=== PATIENT | male | born 1950 | race Hispanic/Latino ===

== ENCOUNTER 2017-03-12 12:40 | Observation (INO) | payer MEDICARE, OTHER ==
[2017-03-12 12:45] VITALS: BMI 29.0
--- NOTE | 2017-03-12 13:06 | ED PDOC ---
Arrival/HPI - General Chief Complaint: Dizziness/Lightheaded Time Seen by Provider: 03/12/17 12:46 Historian: Patient, Industrial Hygiene Manager (Scribe) - History of Present Illness Narrative History of Present Illness (Text): 03/12/17 13:03 A 66 year old male was sent into the emergency department by PMD for worsening dizziness since yesterday. History obtained through scribe who translated for patient. Patient describes the dizziness as a room spinning sensation. He denies any relieving or exacerbating factors. Patient denies any fever, chills, nausea, vomiting, abdominal pain, chest pain, shortness of breath, cough or any other complaints. PMD: Dr. Zia Bustamante Time/Duration: Other (Yesterday) Symptom Course: Worsening Quality: Other Context: Home Past Medical History - Provider Review Nursing Documentation Reviewed: Yes - Cardiac Hx Cardiac Disorders: Yes Hx MT: Yes Hx Hypertension: Yes - Pulmonary Hx Respiratory Disorders: Yes Hx Asthma: Yes - Neurological Hx Neurological Disorder: Yes HX Cerebrovascular Accident: Yes - HEENT Hx HEENT Disorder: Yes Hx Glaucoma: Yes - Gastrointestinal Hx Gastrointestinal Disorders: Yes Hx Bowel Surgery: Yes - Psychiatric Hx Substance Use: No Family/Social History - Physician Review Nursing Documentation Reviewed: Yes Family/Social History: No Known Family HX Smoking Status: Never Smoked Hx Alcohol Use: No Hx Substance Use: No Allergies/Home Meds Allergies/Adverse Reactions: Allergies aspirin Allergy (Verified 03/12/17 12:45) RASH Home Medications: Home Meds Medication Instructions Recorded Confirmed Albuterol HFA [Ventolin HFA 90 2 puff IH PRN PRN 03/12/17 03/12/17 mcg/actuation (8 g)] Lisinopril [Zestril] 20 mg PO DAILY 03/12/17 03/12/17 Review of Systems - Physician Review All systems were reviewed & negative as marked: Yes - Review of Systems Constitutional: absent: Fevers, Night Sweats Respiratory: absent: SOB, Cough Cardiovascular: absent: Chest Pain Gastrointestinal: absent: Abdominal Pain, Nausea, Vomiting Neurological: Dizziness Physical Exam Vital Signs Reviewed: Yes Vital Signs Temp Pulse Resp BP Pulse Ox 03/12/17 18:44 80 128/80 03/12/17 17:08 86 18 127/77 100 03/12/17 15:54 78 14 137/73 99 03/12/17 12:56 98.7 F 94 H 17 164/92 H 99 03/12/17 12:41 98.6 F 87 18 154/99 H 98 Temperature: Afebrile Blood Pressure: Hypertensive Pulse: Regular Respiratory Rate: Normal Appearance: Positive for: Well-Appearing, Non-Toxic, Comfortable Pain Distress: None Mental Status: Positive for: Alert and Oriented X 3 - Systems Exam Head: Present: Atraumatic, Normocephalic Pupils: Present: PERRL Extroacular Muscles: Present: EOMI Conjunctiva: Present: Normal Mouth: Present: Moist Mucous Membranes Neck: Present: Normal Range of Motion Respiratory/Chest: Present: Clear to Auscultation, Good Air Exchange. No: Respiratory Distress, Accessory Muscle Use Cardiovascular: Present: Regular Rate and Rhythm, Normal S1, S2. No: Murmurs Abdomen: Present: Normal Bowel Sounds. No: Tenderness, Distention, Peritoneal Signs Back: Present: Normal Inspection Upper Extremity: Present: Normal Inspection. No: Cyanosis, Edema Lower Extremity: Present: Normal Inspection. No: Edema Neurological: Present: GCS=15, CN II-XII Intact, Speech Normal, Motor Func Grossly Intact, Normal Sensory Function, Normal Cerebellar Funct Skin: Present: Warm, Dry, Normal Color. No: Rashes Psychiatric: Present: Alert, Oriented x 3, Normal Insight, Normal Concentration Medical Decision Making ED Course and Treatment: 03/12/17 13:03 Impression: A 66 year old male with worsening dizziness. Plan: -- Head CT -- Chest xray -- EKG -- Labs -- Urinalysis -- Meclizine -- Reassess and disposition Progress Notes: EKG shows NSR at 87 BPM with nonspecific T-wave changes. Interpreted by me. Report Date : 03/12/2017 13:27:10 Procedure: Chest xray Dictator : Juan Carlos Carmona MD IMPRESSION: No active disease. Report Date : 03/12/2017 13:34:54 PROCEDURE: CT HEAD WITHOUT CONTRAST. Dictator : Juan Carlos Carmona MD IMPRESSION: Normal CT of the Head. 03/15/17 pt with persistent dizziness, cp. dr bryan bedside. recommends stress. pt with allergy to asa. asa held - Lab Interpretations Lab Results: 03/12/17 12:50 03/12/17 12:50 Lab Results 03/12/17 12:52: POC Glucose (mg/dL) 164 H 03/12/17 12:50: Sodium 138, Potassium 3.8, Chloride 98, Carbon Dioxide 28, Anion Gap 16, BUN 13, Creatinine 0.6, Est GFR ( Amer) > 60, Est GFR (Non- Af Amer) > 60, Random Glucose 143 H, Calcium 9.3, Magnesium 2.0, Total Bilirubin 0.6, AST 41, ALT 49, Alkaline Phosphatase 103, Lactate Dehydrogenase 502, Total Creatine Kinase 129, Troponin I < 0.01, Total Protein 8.4 H, Albumin 4.7, Globulin 3.7, Albumin/Globulin Ratio 1.3 03/12/17 12:50: PT 11.3, INR 1.05, APTT 25.8 03/12/17 12:50: WBC 8.1, RBC 4.54, Hgb 14.4, Hct 40.8 L, MCV 89.9, MCH 31.7, MCHC 35.3, RDW 12.6, Plt Count 232, MPV 10.0, Gran % 45.4 L, Lymph % (Auto) 33.8 , Foster % (Auto) 6.5 H, Eos % (Auto) 12.7 H, Baso % (Auto) 1.6, Gran # 3.70, Lymph # 2.8, Foster # 0.5, Eos # 1.0 H, Baso # 0.13 I have reviewed the lab results: Yes - RAD Interpretation Radiology Orders: 03/12/17 12:57 CHEST PORTABLE [RAD] Stat 03/12/17 12:58 HEAD W/O CONTRAST [CT] Stat - Medication Orders Current Medication Orders: Discontinued Medications Aminophylline (Aminophylline 25 Mg/Ml Inj) Confirm Administered Dose 250 mg .ROUTE .STK-MED ONE Stop: 03/13/17 12:35 Last Admin: 03/13/17 13:07 Dose: 100 mg Comments: given during stress test as per order by Dr. Bryan Atorvastatin Calcium (Lipitor) 20 mg PO DIN CINTHIA Last Admin: 03/13/17 16:55 Dose: 20 mg Enoxaparin Sodium (Lovenox) 40 mg SC STAT STA PRN Reason: Protocol Stop: 03/12/17 17:29 Last Admin: 03/12/17 18:44 Dose: 40 mg Enoxaparin Sodium (Lovenox) 40 mg SC DAILY [facility] PRN Reason: Protocol Last Admin: 03/14/17 09:49 Dose: 40 mg Fentanyl (Duragesic) 1 patch TD Q72H [facility] Last Admin: 03/12/17 23:20 Dose: 1 patch Latanoprost (Xalatan Opht) 0 ml OU HS [facility] Last Admin: 03/13/17 22:07 Dose: 2.5 ml Levalbuterol HCl (Xopenex) 0.63 mg IH [id number] PRN PRN Reason: Shortness of Breath Lisinopril (Zestril) 20 mg PO DAILY [facility] Last Admin: 03/14/17 09:49 Dose: 20 mg Meclizine HCl (Antivert) 50 mg PO STAT STA Stop: 03/12/17 12:59 Last Admin: 03/12/17 13:08 Dose: 50 mg Metoprolol Tartrate (Lopressor) 25 mg PO BID [facility] Last Admin: 03/14/17 09:49 Dose: 25 mg Oxycodone HCl (Oxycodone Immediate Release Tab) 10 mg PO BID PRN PRN Reason: Pain, moderate (4-7) Regadenoson (Lexiscan) Confirm Administered Dose 0.4 mg IVP .STK-MED ONE Stop: 03/13/17 12:35 Last Admin: 03/13/17 13:05 Dose: 0.4 mg Comments: given during stress test by Dr. Bryan NIHSS Scale (Raymond) Time Performed: 21:13 - How Severe is the Stoke Baseline Level of Consciousness: 0=Alert LOC to Questions: 0=Both comments correct LOC to commands: 0=Obeys both correctly Best Gaze: 0=Normal Visual: 0=No visual loss Facial: 0=Normal Motor Arm - Left: 0=No drift Motor Arm - Right: 0=No drift Motor Leg - Left: 0=No drift Motor Leg - Right: 0=No drift Limb Ataxia: 0=Absent Sensory: 0=Normal Best Language: 0=No aphasia Dysarthia: 0=Normal articulation Extinction & Inattention (Neglect): 0=Normal, no object Score: 0 Risk Level: No Stroke Risk rTPA Inclusion/Exclusion - Refusal of Treatment Patient Refused Treatment: No - Inclusion Criteria for Altepase Patient is 18 years or Older: Yes The Clinical Diagnosis of Ischemic Stroke That is Causing a Potentially Disabling Neurological Deficit: No Time of Onset is Well Established to be Less Than 270 Minute Before Treatment Would Begin: No Risk/Benefit Discussed With Patient/Family Member Present: No - Scribe Statement The provider has reviewed the documentation as recorded by the Scribe Martina Tyler Provider Scribe Attestation: All medical record entries made by the Scribe were at my direction and personally dictated by me. I have reviewed the chart and agree that the record accurately reflects my personal performance of the history, physical exam, medical decision making, and the department course for this patient. I have also personally directed, reviewed, and agree with the discharge instructions and disposition. Disposition/Present on Arrival - Present on Arrival Any Indicators Present on Arrival: No History of DVT/PE: No History of Uncontrolled Diabetes: No Urinary Catheter: No History of Decub. Ulcer: No History Surgical Site Infection Following: None - Disposition Have Diagnosis and Disposition been Completed?: Yes Diagnosis: Chest pain, Dizziness Disposition: HOSPITALIZED Disposition Time: 04:00 Condition: GOOD
[2017-03-12 13:08] LABS: BASO # 0.13 K/mm3 (0.0-2.0); BASO % 1.6 % (0.0-3.0); EOS % 12.7 % (1.5-5.0); GRAN % 45.4 % (50.0-68.0); HEMOGLOBIN 14.4 g/dL (14.0-18.0); LYMPH # 2.8 (1.2-3.4); LYMPH % 33.8 % (22.0-35.0); MEAN CELL VOLUME 89.9 fl (80.0-105.0); MEAN CORPUSCULAR HEMOGLOBIN 31.7 pg (25.0-35.0); MEAN CORPUSCULAR HGB CONC 35.3 g/dl (31.0-37.0); MONO # 0.5 (0.1-0.6); MONO % 6.5 % (1.0-6.0); PLATELET COUNT 232 10^3/uL (120.0-450.0); RBC 4.54 10^6/uL (3.5-6.1); RED CELL DISTRIBUTION WIDTH 12.6 % (11.5-14.5); WHITE BLOOD COUNT 8.1 10^3/ul (4.5-11.0)
[2017-03-12 13:17] LABS: INR 1.05 (0.93-1.08); PARTIAL THROMBOPLASTIN TIME 25.8 Seconds (23.7-30.8); PROTHROMBIN TIME 11.3 Seconds (9.9-11.8)
[2017-03-12 13:18] LABS: ALB/GLOB RATIO 1.3 (1.1-1.8); ALBUMIN 4.7 g/dL (3.0-4.8); ALT/SGPT 49 U/L (7-56); AST/SGOT 41 U/L (15-59); BLOOD UREA NITROGEN 13 mg/dL (7-21); CALCIUM 9.3 mg/dL (8.4-10.5); GFR AFRICAN-AMERICAN > 60; GFR NON-AFRICAN AMERICAN > 60
--- NOTE | 2017-03-12 13:28 | RAD ---
HISTORY: dizziness COMPARISON: 11/09/2014 FINDINGS: LUNGS: No active pulmonary disease. PLEURA: No significant pleural effusion identified, no pneumothorax apparent. CARDIOVASCULAR: Normal. OSSEOUS STRUCTURES: No significant abnormalities. VISUALIZED UPPER ABDOMEN: Normal. OTHER FINDINGS: None. IMPRESSION: No active disease.
[2017-03-12 13:29] LABS: TROPONIN I < 0.01 ng/mL
--- NOTE | 2017-03-12 13:36 | CT ---
PROCEDURE: CT HEAD WITHOUT CONTRAST. HISTORY: dizziness COMPARISON: None available. TECHNIQUE: Axial computed tomography images were obtained through the head/brain without intravenous contrast. Radiation dose: Total exam DLP = 746 mGy-cm. This CT exam was performed using one or more of the following dose reduction techniques: Automated exposure control, adjustment of the mA and/or kV according to patient size, and/or use of iterative reconstruction technique. FINDINGS: HEMORRHAGE: No intracranial hemorrhage. BRAIN: No mass effect or edema. No atrophy or chronic microvascular ischemic changes. VENTRICLES: Unremarkable. No hydrocephalus. CALVARIUM: Unremarkable. PARANASAL SINUSES: Unremarkable as visualized. No significant inflammatory changes. MASTOID AIR CELLS: Unremarkable as visualized. No inflammatory changes. OTHER FINDINGS: None. IMPRESSION: Normal CT of the Head.
[2017-03-12] MEDS ORDERED: Sodium Chloride 3% 500 ML IV STA (14:42)
[2017-03-12] MEDS ORDERED: Enoxaparin 40 mg Syringe SC STA (17:28)
[2017-03-12] MEDS ORDERED: Levalbuterol 0.63 MG/3 ML Inhal Soln UD IH PRN (17:29)
[2017-03-12 17:38] LABS: PH,URINE 6.5 (4.7-8.0); URINE BILIRUBIN NEGATIVE (NEGATIVE); URINE BLOOD TRACE-LYSED (NEGATIVE); URINE GLUCOSE (UA) NEGATIVE (NEGATIVE); URINE LEUKOCYTE ESTERASE NEGATIVE Leu/uL (NEGATIVE); URINE NITRATE NEGATIVE (NEGATIVE); URINE PROTEIN NEGATIVE mg/dL (<30 mg/dL); URINE UROBILINOGEN 0.2 E.U./dL (<1 E.U./dL)
[2017-03-12 17:40] LABS: URINE APPEARANCE CLEAR (CLEAR); URINE COLOR STRAW (YELLOW)
[2017-03-12 17:54] LABS: URINE RBC 0 - 2 /hpf (0-2); URINE WBC NEGATIVE /hpf (0-6)
[2017-03-12 17:55] LABS: URINE BACTERIA FEW (NEG)
[2017-03-12] MEDS ORDERED: oxyCODONE 10 mg Immediate Release Tab PO PRN (19:55)
[2017-03-12 20:56] LABS: TROPONIN I < 0.01 ng/mL
--- NOTE | 2017-03-12 22:58 | CP.PCM.PN ---
Subjective - Date & Time of Evaluation Date of Evaluation: 03/12/17 Time of Evaluation: 22:57 - Subjective Subjective: DRAFT eye drops xalatan 1 gtt. OU HS. Objective - Vital Signs/Intake and Output Vital Signs (last 24 hours): Temp Pulse Resp BP Pulse Ox 98.7 F 80 18 128/80 100 03/12/17 12:56 03/12/17 18:44 03/12/17 17:08 03/12/17 18:44 03/12/17 17:08 - Medications Medications: Current Medications Enoxaparin Sodium (Lovenox) 40 mg SC DAILY [facility] PRN Reason: Protocol Fentanyl (Duragesic) 1 patch TD Q72H CINTHIA Latanoprost (Xalatan Opht) 0 ml OU HS [facility] Levalbuterol HCl (Xopenex) 0.63 mg IH [id number] PRN PRN Reason: Shortness of Breath Lisinopril (Zestril) 20 mg PO DAILY [facility] Metoprolol Tartrate (Lopressor) 25 mg PO BID [facility] Last Admin: 03/12/17 18:44 Dose: 25 mg Oxycodone HCl (Oxycodone Immediate Release Tab) 10 mg PO BID PRN PRN Reason: Pain, moderate (4-7) - Labs Labs: PT 11.3 Seconds (9.9-11.8) 03/12/17 12:50 INR 1.05 (0.93-1.08) 03/12/17 12:50 APTT 25.8 Seconds (23.7-30.8) 03/12/17 12:50
[2017-03-12] MEDS: Latanoprost 2.5 ml Opht Soln OU SCH (23:18)
--- NOTE | 2017-03-13 01:26 | CON ---
REASON FOR CONSULTATION: Chest pain, cardiac evaluation. BRIEF CLINICAL HISTORY: This is a 66-year-old [id number] obese with past medical history significant for hypertension admitted with dizziness, feels little dizzy and also complaining of dyspnea of exertion and chest pain on exertion, being followed by Dr. Bustamante and Dr. Barnes, did not see for a while Dr. Barnes, had a stress test many years ago, recently having some dyspnea on exertion and chest pain on exertion. The patient says he gets rash, but he is not sure, but it is labelled as allergic to aspirin, and the language barrier is also in between. The patient complained of dizziness as well as chest pain and dyspnea on exertion. 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 SOCIAL HISTORY: Denies smoking. Denies any history of alcohol abuse. CURRENT MEDICATIONS: Lisinopril. ALLERGIES: ALLERGIC TO ASPIRIN. FAMILY HISTORY: Noncontributory. REVIEW OF SYSTEMS: As per HPI. PHYSICAL EXAMINATION VITAL SIGNS: height of the patient is 5 feet and 6 inches, weight of the patient is 180 pounds. Body mass index 29.1 kg/m2. Temperature afebrile, heart rate 94 and blood pressure 164/92. HEENT: PERRLA. Extraocular muscles are intact. NECK: Supple. No carotid bruits or thyromegaly. CHEST: Clear to auscultation. HEART: S1 and S2. Regular. ABDOMEN: Soft. EXTREMITIES: Clubbing and cyanosis negative. LABORATORY DATA: EKG shows normal sinus, T inversion in V2, V3 and V4. IMPRESSION: This is a 66-year-old male with a past medical history significant for asbestos inhalation and hypertension admitted with dyspnea on exertion and chest pain on exertion and dizziness also. First set of the troponin is negative, but given the multiple risk factors for coronary artery disease, suggest echo, stress test, lipid profile, TSH and hemoglobin A1c. The patient also gives a history of surgery of abdomen as exploratory laparotomy after having bright red blood per rectum and possibly partial colectomy was done by Dr. Quintana 5 years ago. It is possible that causes allergy to aspirin that the patient thinks is an allergy. We will try to get in touch with the family members to sort out the allergy issue with aspirin. In the interim, give him one dose of Lovenox to prevent DVT prophylaxis, start Lovenox and he will get lisinopril continue and get the lipid profile, TSH, hemoglobin A1c. Keep n.p.o. after 12 midnight for a stress test in the morning. Thank you Dr. Bustamante for providing us an opportunity in taking care of this patient. Radha Bryan MD cc: Dr. Bustamante.
[2017-03-13 06:17] LABS: HEMOGLOBIN 13.4 g/dL (14.0-18.0); MEAN CELL VOLUME 89.6 fl (80.0-105.0); MEAN CORPUSCULAR HEMOGLOBIN 30.9 pg (25.0-35.0); MEAN CORPUSCULAR HGB CONC 34.5 g/dl (31.0-37.0); MEAN PLATELET VOLUME 9.7 fl (7.0-11.0); PLATELET COUNT 218 10^3/uL (120.0-450.0); RBC 4.33 10^6/uL (3.5-6.1); RED CELL DISTRIBUTION WIDTH 12.6 % (11.5-14.5); WHITE BLOOD COUNT 7.5 10^3/ul (4.5-11.0)
[2017-03-13 06:55] LABS: BASOPHIL 1 % (0.0-1.0); EOSINOPHIL 10 % (0.0-3.0); LYMPHOCYTE 45 % (22.0-35.0); MONOCYTE 5 % (1.0-6.0); NEUTROPHIL 39 % (50.0-70.0); PLATELET ESTIMATE NORMAL (NORMAL)
[2017-03-13 08:07] LABS: BLOOD UREA NITROGEN 11 mg/dL (7-21); GFR AFRICAN-AMERICAN > 60
[2017-03-13 08:08] LABS: ALB/GLOB RATIO 1.2 (1.1-1.8); ALBUMIN 3.9 g/dL (3.0-4.8); ALT/SGPT 42 U/L (7-56); AST/SGOT 32 U/L (15-59); CALCIUM 8.8 mg/dL (8.4-10.5); GFR NON-AFRICAN AMERICAN > 60; HDL CHOLESTEROL 36 mg/dL (29-60); MAGNESIUM 2.2 mg/dL (1.7-2.2)
[2017-03-13 08:18] LABS: LDL CHOLESTEROL 134 mg/dL (0-129)
--- NOTE | 2017-03-13 11:26 | CP.PCM.HP ---
History of Present Illness - History of Present Illness History of Present Illness: 66 yo male h/o CAD/ND (2009) presents to ED yesterday with left sided chest discomfort, diaphoresis, SOB. Troponin negative. Seen by nabila, for stress test today. No cp at present, no SOB Present on Admission - Present on Admission Any Indicators Present on Admission: No Review of Systems - Constitutional Constitutional: Excessive Sweating - Cardiovascular Cardiovascular: Chest Pain, Dyspnea - Neurological Neurological: Dizziness Past Patient History - Past Social History Smoking Status: Never Smoked - CARDIAC Hx Cardiac Disorders: Yes Hx Hypertension: Yes - PULMONARY Hx Respiratory Disorders: Yes Hx Asthma: Yes - NEUROLOGICAL Hx Neurological Disorder: Yes Hx Dizziness: Yes - HEENT Hx HEENT Problems: Yes Hx Glaucoma: Yes - RENAL Hx Chronic Kidney Disease: Yes Hx Kidney Stones: Yes - ENDOCRINE/METABOLIC Hx Endocrine Disorders: No - HEMATOLOGICAL/ONCOLOGICAL Hx Blood Disorders: No - INTEGUMENTARY Hx Dermatological Problems: No - MUSCULOSKELETAL/RHEUMATOLOGICAL Hx Musculoskeletal Disorders: Yes Hx Arthritis: Yes Hx Falls: No - GASTROINTESTINAL Hx Gastrointestinal Disorders: No - GENITOURINARY/GYNECOLOGICAL Hx Genitourinary Disorders: No - PSYCHIATRIC Hx Psychophysiologic Disorder: No Hx Substance Use: No - SURGICAL HISTORY Hx Surgeries: Yes Meds Allergies/Adverse Reactions: Allergies Allergy/AdvReac Type Severity Reaction Status Date / Time aspirin Allergy RASH Verified 03/12/17 12:45 Physical Exam - Constitutional Appears: No Acute Distress - Head Exam Head Exam: ATRAUMATIC, NORMOCEPHALIC - Eye Exam Eye Exam: EOMI, PERRL - ENT Exam ENT Exam: Normal Exam - Neck Exam Neck exam: Positive for: Normal Inspection - Respiratory Exam Respiratory Exam: Clear to Auscultation Bilateral, NORMAL BREATHING PATTERN - Cardiovascular Exam Cardiovascular Exam: REGULAR RHYTHM - GI/Abdominal Exam GI & Abdominal Exam: Normal Bowel Sounds, Soft - Extremities Exam Extremities exam: Positive for: normal inspection - Neurological Exam Neurological exam: Alert, Oriented x3 - Skin Skin Exam: Dry, Warm Results - Vital Signs Recent Vital Signs: Last Vital Signs Temp 98.1 F 03/13/17 06:00 Pulse 58 L 03/13/17 10:00 Resp 19 03/13/17 06:00 BP 105/64 03/13/17 06:00 Pulse Ox 99 03/13/17 06:00 - Labs Result Diagrams: 03/13/17 05:45 03/13/17 07:30 Labs: Laboratory Results - last 24 hr 03/12/17 03/12/17 03/13/17 17:13 20:28 05:45 WBC 7.5 RBC 4.33 Hgb 13.4 L Hct 38.8 L MCV 89.6 MCH 30.9 MCHC 34.5 RDW 12.6 Plt Count 218 MPV 9.7 Neutrophils % (Manual) 39 L Lymphocytes % (Manual) 45 H Monocytes % (Manual) 5 Eosinophils % (Manual) 10 H Basophils % (Manual) 1 Platelet Evaluation Normal Sodium Potassium Chloride Carbon Dioxide Anion Gap BUN Creatinine Est GFR ( Amer) Est GFR (Non-Af Amer) Random Glucose Calcium Phosphorus Magnesium Total Bilirubin AST ALT Alkaline Phosphatase Lactate Dehydrogenase 443 Total Creatine Kinase 128 Troponin I < 0.01 Total Protein Albumin Globulin Albumin/Globulin Ratio Triglycerides Cholesterol LDL Cholesterol Direct HDL Cholesterol TSH 3rd Generation Urine Color Straw Urine Appearance Clear Urine pH 6.5 Ur Specific Plessis 1.015 Urine Protein Negative Urine Glucose (UA) Negative Urine Ketones Negative Urine Blood Trace-lysed H Urine Nitrate Negative Urine Bilirubin Negative Urine Urobilinogen 0.2 Ur Leukocyte Esterase Negative Urine RBC 0 - 2 Urine WBC Negative Ur Epithelial Cells None Urine Bacteria Few 03/13/17 03/13/17 05:45 07:30 WBC RBC Hgb Hct MCV MCH MCHC RDW Plt Count MPV Neutrophils % (Manual) Lymphocytes % (Manual) Monocytes % (Manual) Eosinophils % (Manual) Basophils % (Manual) Platelet Evaluation Sodium 137 Potassium 4.3 Chloride 99 Carbon Dioxide 29 Anion Gap 13 BUN 11 Creatinine 0.6 Est GFR ( Amer) > 60 Est GFR (Non-Af Amer) > 60 Random Glucose 85 Calcium 8.8 Phosphorus 4.2 Magnesium 2.2 Total Bilirubin 0.8 AST 32 ALT 42 Alkaline Phosphatase 77 Lactate Dehydrogenase Total Creatine Kinase Troponin I Total Protein 7.2 Albumin 3.9 Globulin 3.3 Albumin/Globulin Ratio 1.2 Triglycerides 250 H Cholesterol 205 H LDL Cholesterol Direct 134 H HDL Cholesterol 36 TSH 3rd Generation 1.94 Urine Color Urine Appearance Urine pH Ur Specific Plessis Urine Protein Urine Glucose (UA) Urine Ketones Urine Blood Urine Nitrate Urine Bilirubin Urine Urobilinogen Ur Leukocyte Esterase Urine RBC Urine WBC Ur Epithelial Cells Urine Bacteria Assessment & Plan (1) Coronary artery disease Status: Chronic (2) Chest pain Status: Acute (3) Hypertension Status: Acute - Date & Time Date: 03/13/17 Time: 11:15
[2017-03-13] MEDS ORDERED: Aminophylline 25 mg/ml Inj ONE (12:34)
--- NOTE | 2017-03-13 13:16 | PN ---
DATE: 03/13/2017 REASON FOR CONSULTATION: Followup chest pain, cardiac evaluation. SUBJECTIVE: The patient denies any chest pain now. Denies any shortness of breath. Denies any palpitation. Feels better. Dizziness also improved. OBJECTIVE: GENERAL: Lying flat on the bed, n.p.o., waiting to go for stress test. VITAL SIGNS: Temperature afebrile, heart rate 60, and blood pressure 105/64. HEENT: PERRLA. Extraocular muscle intact. NECK: Supple. No carotid bruit. No thyromegaly. CHEST: Clear to auscultation. HEART: S1 and S2, regular. ABDOMEN: Soft. EXTREMITIES: Clubbing and cyanosis negative. LABORATORY DATA: Blood workup as follows; WBC 7.5, hemoglobin 13.4, hematocrit 38.8 and platelet count 218. Chemistry shows sodium 130, potassium 4.3, chloride 99, carbon dioxide 29, anion gap of 13, BUN 11, and creatinine 0.5. Total protein 7.2, albumin 3.9, and albumin-globulin ratio 1.2. Triglycerides 250, cholesterol 205, LDL 134, HDL 36. TSH 1.94. Troponin 0.01 x2. IMPRESSION: A 66-year-old male with past medical history significant for hypertension, hyperlipidemia, history of asbestosis, chronic obstructive pulmonary disease, admitted with dizziness, chest pain, so far troponin is negative. History of possible colectomy for GI bleed, hyperlipidemia. RECOMMENDATIONS: We will do stress test echo today, continue DVT prophylaxis, so far no evidence of acute myocardial infarction. We will resume lisinopril, continue meclizine, continue metoprolol 25 mg twice a day, and we will start atorvastatin for hyperlipidemia 20 mg daily. Further recommendation follow with you. Thank you Dr. Bustamante for providing us an opportunity in taking care of this patient. Radha Bryan MD
[2017-03-13] MEDS: Enoxaparin 40 mg Syringe SC SCH (16:52)
[2017-03-13] MEDS: Latanoprost 2.5 ml Opht Soln OU SCH (22:07)
--- NOTE | 2017-03-13 22:59 | CARD ---
APPROVED REPORT Protocol: LEXISCAN Test Type: Lexiscan Sestamibi Stress Test Attending Physician: Dr. Radha Bryan Referring Physician: Dr. Zia Bustamante Test Indications: Chest Pain Height:5 ft 6 in Weight:171lbs Medications: Lipitor, Lovenox, Duragesic, Lopressor Medical History: 66 y/o male with a history of htn, lung disease Target HR: 155 bpm Resting ECG: normal Resting Heart Rate: 65 bpm Resting Blood Pressure: 150/80mmHg Submaximum (85%): 132 bpm PROCEDURE Pharmacologic stress testing was performed using 0.4mg per 5ml of regadenoson given intravenously over 7-10 seconds. Reversal agent aminophyline 100 mg, given intravenously for Other. POST EXERCISE Reason for Termination: Protocol completed Target HR: No Max HR: 65 bpm 56% of Maximum Predicted HR: 155 bpm Exercise duration: 00:24 min:sec, 0 Stage Exercise capacity: 1.0METs Max Blood Pressure: 150/80mmHg Blood Pressure response to exercise: normal resting BP - appropriate response Heart Rate response to exercise: appropriate Chest Pain: No, none Angina index: 0 Arrhythmia: No, none ST Change: No, none Deviation: 0 mm TEST SUMMARY [id number]. [id number]/.[id number]. [id number]. INTERPRETATION Stress EKG Conclusion: Negative IV lexiscan for ischemia and for chest pain, Nuclear scan to follow. Signed by Radha Byran Electronically Approved: 03/13/2017 13:59:33 EXAM: Myocardial Perfusion REST/STRESS Stress Test Type: Pharmacologic Imaging Protocol Rest Spect myocardial perfusion imaging was performed in supine position 45 minutes following the injection of 10.8 mCi of Tc-99 Myoview. At peak stress, the patient was injected intravenously with 30.9mCi of Tc-99 tetrofosmin after an infusion time of 0 minutes and 10 seconds. Gated Stress Spect was performed 65 minutes after intravenous Tc-99 Myoview injection. The images were gated to evaluate regional wall motion and calculate ventricular ejection fraction.Images were reconstructed using backfilter projection method in short horizontal and verticle long axis. Spect slices were generated. LV Perfusion The quality of the study is good. The left ventricle is normal in size. The right ventricle is unremarkable. The lung uptake is normal. The distribution of tracer reveals mildly to moderately decreased perfusion in the inferior wall on the stress study. The remainder of the LV myocardium is unremarkable. The rest myocardial perfusion study shows no significant change. Wall motion study shows good contractility of the left ventricle. LVEF = 74%. Wall Motion Wall motion study shows good contractility of the left ventricle. LVEF = 78%. Conclusion 1. Essentially normal SPECT myocardial perfusion study. 2. Fixed, inferior defect is most likely due to diaphrgmatic attenuation. 3. Normal gated wall motion and thicknening of the left ventricle.
--- NOTE | 2017-03-13 23:59 | CARD ---
APPROVED REPORT EKG Measurement Heart [id number] <Conclusion> Normal sinus rhythm Left axis deviation Nonspecific T wave abnormality Abnormal ECG
[2017-03-14 01:28] VITALS: RESP 20; O2SAT 98
[2017-03-14 05:58] VITALS: BP 110/64; TEMP 98.2
[2017-03-14 07:59] VITALS: PULSE 83
[2017-03-14] MEDS: Enoxaparin 40 mg Syringe SC SCH (09:49)
--- NOTE | 2017-03-14 11:44 | PN ---
REASON FOR CONSULTATION: Followup chest pain, cardiac evaluation. SUBJECTIVE: The patient is lying flat on the bed. Denies any chest pain, shortness of breath, or any palpitation. OBJECTIVE: GENERAL: Not in apparent distress, lying comfortably on the bed. VITAL SIGNS: Temperature afebrile, heart rate 83, blood pressure 110/64. HEENT: PERRLA. Extraocular muscles intact. NECK: Supple. No carotid bruit. No thyromegaly. CHEST: Clear to auscultation. HEART: S1 and S2, regular. ABDOMEN: Soft. EXTREMITIES: Clubbing and cyanosis negative. LABORATORY DATA: Blood workup as follows: WBC 7.5, hemoglobin 13.4, hematocrit 38.8, platelet count 218. Chemistry shows sodium 137, potassium 4.3, chloride 99, carbon dioxide 29, anion gap of 11, BUN 13, creatinine 0.6. Triglycerides 250, cholesterol 205, LDL 134. IMPRESSION: The patient has hypertension, hyperlipidemia, stress test yesterday done essentially normal myocardial perfusion study, dizziness, atypical chest pain. RECOMMENDATION: We will discontinue telemetry, follow-up the echo. Continue DVT prophylaxis. Continue atorvastatin. THE PATIENT CLAIMS ALLERGY TO ASPIRIN. He has history of bleeding in the past, so he is not on aspirin. Continue lisinopril. Thank you, Dr. Bustamante, for providing us an opportunity in taking care of the patient. Radha Bryan MD
--- NOTE | 2017-03-14 15:06 | CP.PCM.DIS ---
Provider - Provider Date of Admission: 03/12/17 14:39 Attending physician: Zia Bustamante JD, MD Primary care physician: Zia Bustamante JD, MD Time Spent in preparation of Discharge (in minutes): 30 Diagnosis - Discharge Diagnosis (1) Coronary artery disease Status: Chronic (2) Chest pain Status: Acute (3) Hypertension Status: Chronic Hospital Course - Lab Results Lab Results: Most Recent Lab Values WBC 7.5 10^3/ul (4.5-11.0) 03/13/17 05:45 RBC 4.33 10^6/uL (3.5-6.1) 03/13/17 05:45 Hgb 13.4 g/dL (14.0-18.0) L 03/13/17 05:45 Hct 38.8 % (42.0-52.0) L 03/13/17 05:45 MCV 89.6 fl (80.0-105.0) 03/13/17 05:45 MCH 30.9 pg (25.0-35.0) 03/13/17 05:45 MCHC 34.5 g/dl (31.0-37.0) 03/13/17 05:45 RDW 12.6 % (11.5-14.5) 03/13/17 05:45 Plt Count 218 10^3/uL (120.0-450.0) 03/13/17 05:45 MPV 9.7 fl (7.0-11.0) 03/13/17 05:45 Gran % 45.4 % (50.0-68.0) L 03/12/17 12:50 Lymph % (Auto) 33.8 % (22.0-35.0) 03/12/17 12:50 [place] % (Auto) 6.5 % (1.0-6.0) H 03/12/17 12:50 Eos % (Auto) 12.7 % (1.5-5.0) H 03/12/17 12:50 Baso % (Auto) 1.6 % (0.0-3.0) 03/12/17 12:50 Gran # 3.70 (1.4-6.5) 03/12/17 12:50 Lymph # 2.8 (1.2-3.4) 03/12/17 12:50 [place] # 0.5 (0.1-0.6) 03/12/17 12:50 Eos # 1.0 (0.0-0.7) H 03/12/17 12:50 Baso # 0.13 K/mm3 (0.0-2.0) 03/12/17 12:50 Neutrophils % (Manual) 39 % (50.0-70.0) L 03/13/17 05:45 Lymphocytes % (Manual) 45 % (22.0-35.0) H 03/13/17 05:45 Monocytes % (Manual) 5 % (1.0-6.0) 03/13/17 05:45 Eosinophils % (Manual) 10 % (0.0-3.0) H 03/13/17 05:45 Basophils % (Manual) 1 % (0.0-1.0) 03/13/17 05:45 Platelet Evaluation Normal (NORMAL) 03/13/17 05:45 PT 11.3 Seconds (9.9-11.8) 03/12/17 12:50 INR 1.05 (0.93-1.08) 03/12/17 12:50 APTT 25.8 Seconds (23.7-30.8) 03/12/17 12:50 Sodium 137 mmol/L (132-148) 03/13/17 07:30 Potassium 4.3 mmol/L (3.6-5.0) 03/13/17 07:30 Chloride 99 mmol/L (98-107) 03/13/17 07:30 Carbon Dioxide 29 mmol/L (21-33) 03/13/17 07:30 Anion Gap 13 (10-20) 03/13/17 07:30 BUN 11 mg/dL (7-21) 03/13/17 07:30 Creatinine 0.6 mg/dL (0.5-1.4) 03/13/17 07:30 Est GFR ( Amer) > 60 03/13/17 07:30 Est GFR (Non-Af Amer) > 60 03/13/17 07:30 POC Glucose (mg/dL) 164 mg/dL (65-110) H 03/12/17 12:52 Random Glucose 85 mg/dL (70-110) 03/13/17 07:30 Hemoglobin A1c 5.9 % (4.2-6.5) 03/13/17 05:45 Calcium 8.8 mg/dL (8.4-10.5) 03/13/17 07:30 Phosphorus 4.2 mg/dL (2.5-4.5) 03/13/17 07:30 Magnesium 2.2 mg/dL (1.7-2.2) 03/13/17 07:30 Total Bilirubin 0.8 mg/dL (0.2-1.3) 03/13/17 07:30 AST 32 U/L (15-59) 03/13/17 07:30 ALT 42 U/L (7-56) 03/13/17 07:30 Alkaline Phosphatase 77 U/L (38-133) 03/13/17 07:30 Lactate Dehydrogenase 443 U/L (333-699) 03/12/17 20:28 Total Creatine Kinase 128 U/L (35-230) 03/12/17 20:28 Troponin I < 0.01 ng/mL 03/12/17 20:28 Total Protein 7.2 g/dL (5.8-8.3) 03/13/17 07:30 Albumin 3.9 g/dL (3.0-4.8) 03/13/17 07:30 Globulin 3.3 gm/dL 03/13/17 07:30 Albumin/Globulin Ratio 1.2 (1.1-1.8) 03/13/17 07:30 Triglycerides 250 mg/dL (35-160) H 03/13/17 07:30 Cholesterol 205 mg/dL (130-200) H 03/13/17 07:30 LDL Cholesterol Direct 134 mg/dL (0-129) H 03/13/17 07:30 HDL Cholesterol 36 mg/dL (29-60) 03/13/17 07:30 TSH 3rd Generation 1.94 mIU/mL (0.46-4.68) 03/13/17 05:45 Urine Color Straw (YELLOW) 03/12/17 17:13 Urine Appearance Clear (CLEAR) 03/12/17 17:13 Urine pH 6.5 (4.7-8.0) 03/12/17 17:13 Ur Specific [place] 1.015 (1.005-1.035) 03/12/17 17:13 Urine Protein Negative mg/dL (<30 mg/dL) 03/12/17 17:13 Urine Glucose (UA) Negative mg/dL (NEGATIVE) 03/12/17 17:13 Urine Ketones Negative mg/dL (NEGATIVE) 03/12/17 17:13 Urine Blood Trace-lysed (NEGATIVE) H 03/12/17 17:13 Urine Nitrate Negative (NEGATIVE) 03/12/17 17:13 Urine Bilirubin Negative (NEGATIVE) 03/12/17 17:13 Urine Urobilinogen 0.2 E.U./dL (<1 E.U./dL) 03/12/17 17:13 Ur Leukocyte Esterase Negative [place]/uL (NEGATIVE) 03/12/17 17:13 Urine RBC 0 - 2 /hpf (0-2) 03/12/17 17:13 Urine WBC Negative /hpf (0-6) 03/12/17 17:13 Ur Epithelial Cells None /hpf (0-5) 03/12/17 17:13 Urine Bacteria Few (NEG) 03/12/17 17:13 - Hospital Course Hospital Course: Pt admitted for sob and chect pain, serial ecg and troponin negative for ACS. pt underwent stress test, eval by cardiology, no acute findings and medically stable for discharge to home. no cp, no sob. Pt will be dcis on all home meds , heart healthy diet, follow up in office 1 - 2 weeks, activity ad brett Discharge Exam - Head Exam Head Exam: ATRAUMATIC, NORMOCEPHALIC - Respiratory Exam Respiratory Exam: Clear to PA & Lateral, NORMAL BREATHING PATTERN - Cardiovascular Exam Cardiovascular Exam: REGULAR RHYTHM - GI/Abdominal Exam GI & Abdominal Exam: Normal Bowel Sounds - Extremities Exam Extremities exam: normal inspection - Neurological Exam Neurological exam: Alert, Oriented x3 - Skin Skin Exam: Dry, Warm Discharge Plan - Follow Up Plan Condition: GOOD Disposition: HOME/ ROUTINE Instructions: Chest Pain (DC) Additional Instructions: Follow up with Dr. Bustamante outpatient within one week. If symptoms return or chest pain develops, seek medical attention immediately.
--- NOTE | 2017-03-14 17:17 | CARD ---
APPROVED REPORT EXAM: Two-dimensional and M-mode echocardiogram with Doppler and color Doppler. INDICATION Chest Pain 2D DIMENSIONS Left Atrium (2D)3.5 (1.6-4.0cm)IVSd0.9 (0.7-1.1cm) LVDd4.5 (3.9-5.9cm)PWd1.0 (0.7-1.1cm) LVDs2.8 (2.5-4.0cm)FS (%) 37.3 % LVEF (%)67.4 (>50%) M-Mode DIMENSIONS Aortic Root3.20 (2.2-3.7cm)Aortic Cusp Exc.1.80 (1.5-2.0cm) Aortic Valve AoV Peak Yefpqybu159.0cm/Codie Peak GR.9mmHg Mitral Valve MV E Wbebwsic29.1cm/sMV A Hamtepyo48.7cm/sE/A ratio0.7 TDI Lateral E' Peak V9.85cm/sMedial E' Peak V5.95cm/sE/Lateral E'7.2 E/Medial E'11.9 Pulmonary Valve PV Peak Nezpddqo98.5cm/sPV Peak Grad.2mmHg Tricuspid Valve TR Peak [id number]/sRAP [id number] Peak Gr.27mmHg [id number] LEFT VENTRICLE The left ventricle is normal size. There is normal left ventricular wall thickness. The left ventricular function is normal.EF-60-65% There is normal LV segmental wall motion. Transmitral Doppler flow pattern is Grade III-reversible restrictive diastolic dysfunction. No left ventricle thrombus noted on this study. There is no ventricular septal defect visualized. There is no left ventricular aneurysm. There is no mass noted in the left ventricle. RIGHT VENTRICLE The right ventricle is normal size. There is normal right ventricular wall thickness. The right ventricular systolic function is normal. ATRIA The left atrium size is normal. The right atrium size is normal. The interatrial septum is intact with no evidence for an atrial septal defect. AORTIC VALVE The aortic valve is thickened but opens well. There is trace aortic regurgitation. There is no aortic valvular stenosis. There is no aortic valvular vegetation. MITRAL VALVE The mitral valve is thickened but opens well. Mitral regurgitation is trace. There is no mitral valve stenosis. There is no evidence of mitral valve prolapse. TRICUSPID VALVE The tricuspid valve leaflets are thickened , but open well. There is trace tricuspid regurgitation.RVSP-37 mmof Hg. There is no tricuspid valve stenosis. There is no tricuspid valve prolapse or vegetation. PULMONIC VALVE The pulmonary valve is normal in structure. There is trace pulmonic valvular regurgitation. There is no pulmonic valvular stenosis. GREAT VESSELS The aortic root is normal in size. The ascending aorta is normal in size. The pulmonary artery is normal. The IVC is normal in size and collapses >50% with inspiration. PERICARDIAL EFFUSION There is no pleural effusion. There is no pericardial effusion. <Conclusion> Normal chamber Size. Ef-60-65% Trace MR/TR/ AR/PI RVSP-37 mmof Hg
== END 2017-03-14 12:45 | disposition home or self-care (01) ==
LOC: ED 12:40 → ERH 14:39 → 2RNO 19:22
PROVIDERS: ADMIT Internal Medicine; ATTEND Internal Medicine
DX: I25.10 Atherosclerotic heart disease of native coronary artery without angina pectoris (principal); R42 Dizziness and giddiness; I10 Essential (primary) hypertension; E66.9 Obesity, unspecified; R06.09 Other forms of dyspnea; J44.9 Chronic obstructive pulmonary disease, unspecified; E78.5 Hyperlipidemia, unspecified; I25.2 Old myocardial infarction; Z88.6 Allergy status to analgesic agent
CPT/HCPCS: 36415; 70450; 71010; 78452; 80053; 80061; 81001; 82550; 82948; 83036; 83615; 83735; 84100; 84443; 84484; 85025; 85610; 85730; 93005; 93017; 93306; 96372; 99285; A9502; G0378; J0280; J1650; J2785

== ENCOUNTER 2017-12-16 19:25 | Emergency (ER) | payer MEDICARE, OTHER ==
[2017-12-16 19:29] VITALS: BMI 29.6
[2017-12-16] MEDS ORDERED: Sodium Chloride 0.9% 1,000 ML IV STA (19:59)
[2017-12-16] MEDS ORDERED: Famotidine 20mg/50ml 20 MG/50 ML BAG IVPB STA (20:01)
--- NOTE | 2017-12-16 20:35 | ED PDOC ---
Arrival/HPI - General Chief Complaint: Shortness Of Breath Time Seen by Provider: 12/16/17 19:58 Historian: Patient - History of Present Illness Narrative History of Present Illness (Text): 12/16/17 20:32 67yo male who present with complaint of diffuse sharp/crampy abdominal pain since this morning with dyspepsia. He reports normal BM this afternoon. denies nausea, vomiting, diarrhea, constipation, fever, chest pain, SOB(Contrary to triage note), melena, hematemesis, sick contact, travel, diaphoresis, ripping/ tearing upper back pain. Past Medical History - Provider Review Nursing Documentation Reviewed: Yes - Cardiac Hx Cardiac Disorders: Yes Hx VT: Yes Hx Hypertension: Yes - Pulmonary Hx Respiratory Disorders: Yes Hx Asthma: Yes - Neurological Hx Neurological Disorder: Yes HX Cerebrovascular Accident: Yes - HEENT Hx HEENT Disorder: Yes Hx Glaucoma: Yes - Renal Hx Renal Disorder: Yes Hx Kidney Stones: Yes - Endocrine/Metabolic Hx Endocrine Disorders: No - Hematological/Oncological Hx Blood Disorders: No - Integumentary Hx Dermatological Disorder: No - Musculoskeletal/Rheumatological Hx Musculoskeletal Disorders: Yes Hx Arthritis: Yes Hx Falls: No - Gastrointestinal Hx Gastrointestinal Disorders: Yes Hx Bowel Surgery: Yes - Genitourinary/Gynecological Hx Genitourinary Disorders: No - Psychiatric Hx Psychophysiologic Disorder: No Hx Substance Use: No Family/Social History - Physician Review Nursing Documentation Reviewed: Yes Family/Social History: Unknown Family HX Smoking Status: Never Smoked Hx Alcohol Use: No Hx Substance Use: No Allergies/Home Meds Allergies/Adverse Reactions: Allergies aspirin Allergy (Verified 12/16/17 19:29) RASH Home Medications: Home Meds Medication Instructions Recorded Confirmed Albuterol HFA [Ventolin HFA 90 2 puff IH PRN PRN 03/12/17 12/16/17 mcg/actuation (8 g)] Review of Systems - Physician Review All systems were reviewed & negative as marked: Yes - Review of Systems Constitutional: Normal Eyes: Normal ENT: Normal Respiratory: Normal Cardiovascular: Normal Gastrointestinal: Abdominal Pain. absent: Constipation, Diarrhea, Nausea, Vomiting, Hematochezia, Hematemesis Genitourinary Male: Normal Musculoskeletal: Normal Skin: Normal Neurological: Normal Endocrine: Normal Hemo/Lymphatic: Normal Psychiatric: Normal Physical Exam Vital Signs Reviewed: Yes Vital Signs Pulse BP 12/16/17 20:51 86 140/80 Temperature: Afebrile Blood Pressure: Normal Pulse: Regular Respiratory Rate: Normal Appearance: Positive for: Well-Appearing, Non-Toxic, Comfortable Pain Distress: None Mental Status: Positive for: Alert and Oriented X 3 - Systems Exam Head: Present: Atraumatic, Normocephalic Pupils: Present: PERRL Extroacular Muscles: Present: EOMI Conjunctiva: Present: Normal Mouth: Present: Moist Mucous Membranes Neck: Present: Normal Range of Motion Respiratory/Chest: Present: Clear to Auscultation, Good Air Exchange. No: Respiratory Distress, Accessory Muscle Use Cardiovascular: Present: Regular Rate and Rhythm, Normal S1, S2. No: Murmurs Abdomen: Present: Tenderness (Diffuse tenderness), Normal Bowel Sounds, Guarding (Voluntary), Scars (Old healed surgical scar noted), Other (soft). No : Distention, Peritoneal Signs, Rebound, McBurney's Point Tender, Rovsing's Sign Present Back: Present: Normal Inspection Upper Extremity: Present: Normal Inspection. No: Cyanosis, Edema Lower Extremity: Present: Normal Inspection. No: Edema Neurological: Present: GCS=15, CN II-XII Intact, Speech Normal Skin: Present: Warm, Dry, Normal Color. No: Rashes Psychiatric: Present: Alert, Oriented x 3, Normal Insight, Normal Concentration Medical Decision Making ED Course and Treatment: 12/16/17 23:12 67yo male in Emergency department for abdominal pain. Labs ordered Il NS, Pepcid ordered Abdominal/Pelvis CT On re evaluation, pt complained of feeling bloated. Protonix ordered Abdominal/Pelvic CT IMPRESSION: 1. Probable mild enteritis. Clinical correlation is needed. 2. Mild small bowel dilatation, likely ileus. Early small bowel obstruction not entirely excluded. 3. Pulmonary nodules. For low-risk patients, no follow-up is necessary. For high-risk patients (smoking history or other known risk factors) an optional CT at 12 months could be performed. 4. Incidental/non-acute findings are described above. 12/16/17 23:[address] Quintana, Pt's GI. He notes that pt have had ileus for years secondary to the narcotic he takes. He recommends that pt be DC home with PPI and advised to f/u with his office. Pt lab is unremarkable. He is stable for DC. He is eating and drinking well. He reports normal BM. Denies Nausea, vomiting, diarrhea . - Lab Interpretations Lab Results: 12/16/17 20:20 12/16/17 20:20 Lab Results 12/16/17 20:20: pO2 39, VBG pH 7.38, VBG pCO2 55.0, VBG HCO3 32.5 H, VBG Total CO2 34.2 H, VBG O2 Sat (Calc) 77.8 H, VBG Base Excess 5.8 H, VBG Potassium 4.2, Sodium 135.0, Chloride 97.0 L, Glucose 161 H, Lactate 2.4 H, FiO2 21.0, Venous Blood Potassium 4.2 12/16/17 20:20: Sodium 141, Chloride 97 L, Potassium 4.2, Carbon Dioxide 29, Anion Gap 19, BUN 11, Creatinine 0.6 L, Est GFR ( Amer) > 60, Est GFR ( Non-Af Amer) > 60, Random Glucose 154 H, Calcium 9.7, Total Bilirubin 0.4, AST 28, ALT 35, Alkaline Phosphatase 86, Lactate Dehydrogenase 460, Total Creatine Kinase 68, Troponin I < 0.01, Total Protein 8.2, Albumin 4.6, Globulin 3.6, Albumin/Globulin Ratio 1.3, Amylase 105, Lipase 54 12/16/17 20:20: PT 11.9, INR 1.04, APTT 28.1 12/16/17 20:20: WBC 8.3, RBC 4.87, Hgb 15.4 D, Hct 44.7, MCV 91.8, MCH 31.6, MCHC 34.5, RDW 12.6, Plt Count 243, MPV 10.0, Gran % 73.1 H, Lymph % (Auto) 16.9 L, [place] % (Auto) 4.5, Eos % (Auto) 5.0, Baso % (Auto) 0.5, Gran # 6.06, Lymph # (Auto) 1.4, [place] # (Auto) 0.4, Eos # (Auto) 0.4, Baso # (Auto) 0.04 - RAD Interpretation Radiology Orders: 12/16/17 20:35 ABD & PELVIS IV CONTRAST ONLY [CT] Stat - Medication Orders Current Medication Orders: Discontinued Medications Sodium Chloride (Sodium Chloride 0.9%) 1,000 mls @ 999 mls/hr IV .Q1H1M STA Stop: 12/16/17 20:59 Last Admin: 12/16/17 20:23 Dose: 999 mls/hr eMAR Start Stop Document 12/16/17 20:23 RG (Rec: 12/16/17 20:23 [id number] Intravenous Solution Start Date 12/16/17 Start Time 20:23 Famotidine (Pepcid 20mg/50ml Premix) 20 mg in 50 mls @ 200 mls/hr IVPB STAT STA Stop: 12/16/17 20:15 Last Admin: 12/16/17 20:23 Dose: 200 mls/hr eMAR Start Stop Document 12/16/17 20:23 RG (Rec: 12/16/17 20:23 [id number] Intravenous Solution Start Date 12/16/17 Start Time 20:23 Pantoprazole Sodium (Protonix Inj) 40 mg IVP STAT STA Stop: 12/16/17 22:56 Disposition/Present on Arrival - Present on Arrival Any Indicators Present on Arrival: No History of DVT/PE: No History of Uncontrolled Diabetes: No Urinary Catheter: No History of Decub. Ulcer: No History Surgical Site Infection Following: None - Disposition Have Diagnosis and Disposition been Completed?: Yes Diagnosis: Abdominal pain Disposition: HOME/ ROUTINE Disposition Time: 23:25 Patient Plan: Discharge Patient Problems: Current Active Problems Problem Status Onset Abdominal pain Acute Condition: STABLE Discharge Instructions (ExitCare): Acute Abdomen (Belly Pain), Adult (DC) Additional Instructions: Follow up with your Doctor, Dr. Quintana this week Return to Emergency department for any new or worsening symptoms Prescriptions: Pantoprazole Sodium [Protonix] 40 mg PO DAILY #20 ect Referrals: Zia Bustamante JD, MD [Primary Care Provider] - Follow up with primary Quinn Quintana MD [Staff Provider] - Follow up with primary Forms: [employer] (Hebrew)
[2017-12-16 20:41] LABS: BASO # 0.04 K/mm3 (0.0-2.0); BASO % 0.5 % (0.0-3.0); EOS # 0.4 (0.0-0.7); GRAN # 6.06 (1.4-6.5); GRAN % 73.1 % (50.0-68.0); HEMOGLOBIN 15.4 g/dL (14.0-18.0); LYMPH # 1.4 (1.2-3.4); LYMPH % 16.9 % (22.0-35.0); MEAN CELL VOLUME 91.8 fl (80.0-105.0); MEAN CORPUSCULAR HEMOGLOBIN 31.6 pg (25.0-35.0); MEAN CORPUSCULAR HGB CONC 34.5 g/dl (31.0-37.0); MONO # 0.4 (0.1-0.6); MONO % 4.5 % (1.0-6.0); RBC 4.87 10^6/uL (3.5-6.1); RED CELL DISTRIBUTION WIDTH 12.6 % (11.5-14.5); WHITE BLOOD COUNT 8.3 10^3/ul (4.5-11.0)
[2017-12-16 20:42] LABS: INR 1.04 (0.93-1.08); PARTIAL THROMBOPLASTIN TIME 28.1 Seconds (25.1-36.5); PROTHROMBIN TIME 11.9 SECONDS (9.4-12.5); VENOUS BLOOD GAS BASE EXCESS 5.8 mmol/L (0.0-2.0); VENOUS BLOOD GAS PO2 39 mm/Hg (30-55); VENOUS BLOOD PH 7.38 (7.32-7.43)
[2017-12-16 20:47] LABS: ALB/GLOB RATIO 1.3 (1.1-1.8); ALBUMIN 4.6 g/dL (3.0-4.8); ALT/SGPT 35 U/L (7-56); AMYLASE 105 U/L (35-125); AST/SGOT 28 U/L (17-59); BLOOD UREA NITROGEN 11 mg/dL (7-21); CALCIUM 9.7 mg/dL (8.4-10.5); GFR AFRICAN-AMERICAN > 60; GFR NON-AFRICAN AMERICAN > 60; LIPASE 54 U/L (23-300)
[2017-12-16 20:59] LABS: TROPONIN I < 0.01 ng/mL
[2017-12-16] MEDS ORDERED: Iohexol 350 MG/100 ML VIAL ONE (21:30)
--- NOTE | 2017-12-16 22:40 | CT ---
EXAM: CT Abdomen and Pelvis With Intravenous Contrast CLINICAL HISTORY: 67 years old, male; Pain; Abdominal pain; Periumbilical; Prior surgery; Surgery date: 6+ months; Surgery type: HX bowel surgery pt did not know what kind TECHNIQUE: Axial computed tomography images of the abdomen and pelvis with intravenous contrast. All CT scans at this facility use one or more dose reduction techniques, viz.: automated exposure control; ma/kV adjustment per patient size (including targeted exams where dose is matched to indication; i.e. head); or iterative reconstruction technique. Coronal and sagittal reformatted images were created and reviewed. CONTRAST: 100 mL of omnipaque 350 administered intravenously. COMPARISON: No relevant prior studies available. FINDINGS: Limitations: Motion artifact - mild. Lung bases: Minimal atelectasis/scarring. Few pulmonary nodules, up to 0.3 cm. ABDOMEN: Liver: Unremarkable. No mass. Gallbladder and bile ducts: Calcified gallstone. No significant ductal dilation. Pancreas: No ductal dilation. No mass. Spleen: No splenomegaly. Adrenals: No mass. Kidneys and ureters: Few too small to characterize lesions within kidneys. No hydronephrosis. Stomach and bowel: Fluid distention of stomach. Fluid within small bowel. Apparent mild mural/fold thickening of few jejunal loops. Minimal fluid within associated small bowel mesentery. Few scattered minimal to mildly distended loops of small bowel. Partial colectomy. Scattered diverticula within colon. No associated inflammatory stranding. PELVIS: Appendix: Appendectomy. Bladder: Unremarkable. Reproductive: Borderline enlarged prostate. ABDOMEN and PELVIS: Intraperitoneal space: See above. Bones/joints: Degenerative changes of spine. No acute fracture. Probable bone islands. Soft tissues: Postsurgical changes of anterior abdominal wall. Small umbilical hernia containing fat. Vasculature: Mild atherosclerotic disease. No aneurysm. Lymph nodes: No pathologically enlarged lymph nodes. IMPRESSION: 1. Probable mild enteritis. Clinical correlation is needed. 2. Mild small bowel dilatation, likely ileus. Early small bowel obstruction not entirely excluded. 3. Pulmonary nodules. For low-risk patients, no follow-up is necessary. For high-risk patients (smoking history or other known risk factors) an optional CT at 12 months could be performed. 4. Incidental/non-acute findings are described above.
[2017-12-16 23:37] VITALS: O2SAT 100
[2017-12-17 00:09] LABS: VENOUS BLOOD GAS BASE EXCESS 2.4 mmol/L (0.0-2.0); VENOUS BLOOD GAS PO2 203 mm/Hg (30-55); VENOUS BLOOD PH 7.42 (7.32-7.43)
[2017-12-17 00:14] LABS: PH,URINE 6.5 (4.7-8.0); URINE BILIRUBIN NEGATIVE (NEGATIVE); URINE BLOOD NEGATIVE (NEGATIVE); URINE GLUCOSE (UA) NEGATIVE (NEGATIVE); URINE LEUKOCYTE ESTERASE NEGATIVE Leu/uL (NEGATIVE); URINE PROTEIN NEGATIVE mg/dL (<30 mg/dL); URINE UROBILINOGEN 0.2 E.U./dL (<1 E.U./dL)
[2017-12-17 00:24] LABS: URINE APPEARANCE CLEAR (CLEAR); URINE COLOR STRAW (YELLOW)
[2017-12-17 00:33] VITALS: BP 159/77; PULSE 85; RESP 21
--- NOTE | 2017-12-17 08:45 | CARD ---
APPROVED REPORT EKG Measurement Heart [id number] OR [id number] <Conclusion> Normal sinus rhythm PRWP V 1 - 6, possible due to lead positioning Left anterior fascicular block NSSTW changes
== END 2017-12-17 00:30 | disposition home or self-care (01) ==
LOC: ED 19:25
DX: R10.9 Unspecified abdominal pain (principal); I10 Essential (primary) hypertension
CPT/HCPCS: 74177; 80053; 81003; 82150; 82550; 82803; 83615; 83690; 84484; 85025; 85610; 85730; 93005; 96374; 99285; C9113; J7040; Q9967

== ENCOUNTER 2018-10-30 11:12 | Outpatient (CLI) | payer MEDICARE | END 2018-10-30 11:13 | disposition home or self-care (01) | LOC: RAD 11:12 ==